=== PATIENT | female | born 1990 | race Caucasian/White ===

== ENCOUNTER 2024-01-15 23:34 | Emergency (ER) | payer MEDICAID ==
[2024-01-15] MEDS: Lidocaine 1% 10 ML MDV INJECT ONE (23:55)
[2024-01-16] MEDS: Diphtheria,Pertussis(Acell),Tetanus Vaccine 0.5 ML Syringe IM ONE (00:24)
== END 2024-01-16 00:44 | disposition home or self-care (01) ==
LOC: JD.ED 23:34
DX: S01.81XA Laceration without foreign body of other part of head, initial encounter (principal); Z79.899 Other long term (current) drug therapy; W45.8XXA Other foreign body or object entering through skin, initial encounter
CPT/HCPCS: 12013; 90471; 90715; 99282-25; 99283; J3490